=== PATIENT | male | born 1960 | race Caucasian/White ===

== ENCOUNTER 2019-02-03 01:07 | Observation (INO) ==
[2019-02-03] MEDS ORDERED: Ondansetron 4 MG/2 ML VIAL IVP ONE (01:16)
--- NOTE | 2019-02-03 01:24 | Emergency Department Note ---
Disposition Clinical Impression: Abdominal pain Qualifiers: Abdominal location: generalized Qualified Code(s): R10.84 - Generalized abdominal pain Disposition: Still a Patient Condition: Fair Forms: ED Satisfaction Letter, Work/School Release Time of Disposition: 05:59 Abdominal Pain HPI - General Chief Complaint: ED Abdominal Pain Stated Complaint: abd pain Time Seen by Provider: 02/03/19 01:12 Source: patient, EMS Mode of arrival: EMS Limitations: no limitations Nursing Notes Reviewed: Yes Vital Signs Reviewed: Yes - History of Present Illness Pt Subjective Complaint: abdominal pain Onset (ago): hour(s) Consistency: constant, other Location: diffuse Pain Severity: moderate, severe Pain Scale: 9 Quality: stabbing, sharp Radiation: none Migration to: no migration Improves with: nothing Worsens with: nothing Context: possible food poisoning, history of similar episodes (last ) Associated symptoms: Reports: nausea, vomiting, diarrhea. Denies: fever, chills, constipation, dysuria, hematemesis, hematochezia, melena, hematuria, anorexia, syncope Treatments prior to arrival: none - Related Data Home Medications Medication Instructions Recorded Confirmed Unable To Obtain [Unable to Obtain] 02/03/19 02/03/19 Allergies Allergy/AdvReac Type Severity Reaction Status Date / Time Penicillins Allergy See Verified 02/03/19 01:11 Comments All systems ED: reviewed and negative except as stated. Review of Systems: As Per HPI Constitutional: Denies: fever, chills, weakness Cardiovascular: Denies: chest pain, palpitations, dyspnea on exertion, orthopnea, edema, syncope Respiratory: Denies: cough, dyspnea, wheezes Gastrointestinal: Reports: as per HPI, abdominal pain, nausea, vomiting, diarrhea. Denies: constipation, hematemesis, melena, hematochezia Genitourinary: Denies: urgency, dysuria, frequency, hematuria Musculoskeletal: Denies: back pain, joint swelling, arthralgia Integumentary: Denies: rash Neurological: Denies: headache, weakness, numbness, paresthesias, vertigo Hematological/Lymphatic: Denies: easy bleeding, easy bruising Abdominal Pain PMH - Past Medical History Medical history: Reports: diabetes, GERD, hyperlipidemia, hypertension, pulmonary embolus, other Male Surgical History: Reports: orthopedic, other, other Psychiatric history: Reports: depression - Social History Smoking status: Current every day smoker Alcohol use: Reports: heavy, recent Drug use: Reports: none Physical Exam - General Limitations: no limitations General appearance: alert, in no apparent distress - Head Head exam: atraumatic, normocephalic, normal inspection - Eye Eye exam: Present: normal appearance, PERRL. Absent: scleral icterus, c onjunctival injection, periorbital swelling - ENT ENT exam: mucous membranes dry - Neck Neck exam: Present: normal inspection, full ROM, trachea midline. Absent: meningismus - Respiratory Respiratory exam: Present: normal lung sounds bilaterally. Absent: respiratory distress - Cardiovascular Cardiovascular exam: Present: regular rate, normal rhythm - Abdominal Exam Abdominal exam: Present: soft, tenderness. Absent: distention, guarding, rebound, rigidity, organomegaly, Gamez's sign, Rovsing's sign, tenderness at McBurney's Point, ascites, mass, pulsatile mass Abdominal tenderness: Present: diffuse - Extremities Exam Extremities exam: Present: normal inspection, full ROM, normal capillary refill - Back Exam Back exam: Present: normal inspection - Neurological Exam Neurological exam: Present: alert, oriented X3, CN II-XII intact, normal gait - Psychiatric Psychiatric exam: Present: normal affect, normal mood - Skin Skin exam: Present: warm, dry, intact, normal color Course Course Narrative: Patient presents for eval of acute onset abd pain with N/V/D. Similar illness last . Had [employer] for dinner and thinks perhaps it was "bad". No hx of abd surgery or pathology. No blood in emesis or stool. He looks misera ble but non-toxic. Meds, labs and CT ordered. Symptoms improved. Labs resulted. CT concerning for cholecystitis per Radiologist. U/S tech paged. 02:40 tutor coordinator has now made contact with sponge maker. There is another patient ahead of this one though. Pain returned. Additional meds ordered. - Consultations Consultation #1: Case discussed with Dr Louis. He recommends admission to the hospitalist and hepato-biliary scan. Time: 05:58 Vital Signs Temperature 98.2 F 02/03/19 01:12 Pulse Rate 84 02/03/19 01:12 Respiratory Rate 20 02/03/19 01:12 Blood Pressure 149/79 02/03/19 01:12 O2 Sat by Pulse Oximetry 95 02/03/19 01:12 Temperature 98.2 F 02/03/19 01:12 Pulse Rate 111 02/03/19 04:14 Respiratory Rate 24 02/03/19 04:14 Blood Pressure 162/100 02/03/19 03:50 O2 Sat by Pulse Oximetry 97 02/03/19 04:14 Oxygen Delivery Oxygen Delivery Nasal Cannula Abdominal Pain - Medical Records Medical records reviewed: Yes I reviewed the patient's medical records. - Lab Data Lab results reviewed: Yes I reviewed the patient's lab results. Lab results narrative: Laboratory Last Values WBC 13.1 K/mcL (4.3-11.1) H 02/03/19 01:27 RBC 5.13 M/mcL (4.19-5.50) 02/03/19 01:27 Hgb 16.7 g/dL (12.9-16.9) 02/03/19 01:27 Hct 47.6 % (37.5-50.1) 02/03/19 01:27 MCV 92.8 fL (83.0-100.0) 02/03/19 01:27 MCH 32.6 pg (28.0-33.3) 02/03/19 01:27 MCHC 35.1 g/dL (31.6-35.5) 02/03/19 01:27 RDW 11.9 % (11.5-14.5) 02/03/19 01:27 Plt Count 224 K/mcL (140-400) 02/03/19 01:27 MPV 10.2 fL (9.4-12.4) 02/03/19 01:27 Immature Gran % 0.5 % (0-4) 02/03/19 01:27 Seg Neutrophils % 90.4 % 02/03/19 01:27 Lymphocytes % 6.4 % 02/03/19 01:27 Monocytes % 2.5 % 02/03/19 01:27 Eosinophils % 0.0 % 02/03/19 01:27 Basophils % 0.2 % 02/03/19 01:27 Neutrophils # 11.9 K/mcL (1.6-8.9) H 02/03/19 01:27 Lymphocytes # 0.8 K/mcL (0.6-4.6) 02/03/19 01:27 Monocytes # 0.3 K/mcL (0.0-1.3) 02/03/19 01:27 Eosinophils # 0.0 K/mcL (0.0-0.6) 02/03/19 01:27 Basophils # 0.0 K/mcL (0.0-0.2) 02/03/19 01:27 Sodium 131 mEq/L (136-145) L 02/03/19 01:27 Potassium 3.8 mEq/L (3.5-5.1) 02/03/19 01:27 Chloride 90 mEq/L (98-107) L 02/03/19 01:27 Carbon Dioxide 24 mEq/L (23-29) 02/03/19 01:27 BUN 5 mg/dL (6-20) L 02/03/19 01:27 Creatinine 0.79 mg/dL (0.70-1.30) 02/03/19 01:27 Est GFR ( Amer) > 60 (> 60) 02/03/19 01:27 Est GFR (Non-Af Amer) > 60 (> 60) 02/03/19 01:27 BUN/Creatinine Ratio 6 (6-26) 02/03/19 01:27 Glucose 204 mg/dL (70-105) H 02/03/19 01:27 Calculated Osmolality 275 (280-300) L 02/03/19 01:27 Calcium 8.8 mg/dL (8.6-10.3) 02/03/19 01:27 Total Bilirubin 0.8 mg/dL (0.3-1.0) 02/03/19 01:27 Direct Bilirubin 0.3 mg/dL (0.0-0.2) H 02/03/19 01:27 Indirect Bilirubin 0.5 mg/dL (0.0-1.2) 02/03/19 01:27 AST 27 Units/L (13-39) 02/03/19 01:27 ALT 25 Units/L (7-52) 02/03/19 01:27 Alkaline Phosphatase 91 Units/L (34-104) 02/03/19 01:27 Serum Total Protein 7.2 g/dL (6.4-8.9) 02/03/19 01:27 Albumin 4.2 g/dL (3.5-5.7) 02/03/19 01:27 Globulin 3.0 g/dL (2.4-3.5) 02/03/19 01:27 Albumin/Globulin Ratio 1.4 (1.1-2.2) 02/03/19 01:27 Lipase 17 Units/L (11-82) 02/03/19 01:27 Result diagrams: 02/03/19 01:27 02/03/19 01:27 Lab Results 02/03/19 02/03/19 Range/Units 01:27 01:27 WBC 13.1 H (4.3-11.1) K/mcL RBC 5.13 (4.19-5.50) M/mcL Hgb 16.7 (12.9-16.9) g/dL Hct 47.6 (37.5-50.1) % MCV 92.8 (83.0-100.0) fL MCH 32.6 (28.0-33.3) pg MCHC 35.1 (31.6-35.5) g/dL RDW 11.9 (11.5-14.5) % Plt Count 224 (140-400) K/mcL MPV 10.2 (9.4-12.4) fL Immature Gran % 0.5 (0-4) % Seg Neutrophils % 90.4 % Lymphocytes % 6.4 % Monocytes % 2.5 % Eosinophils % 0.0 % Basophils % 0.2 % Neutrophils # 11.9 H (1.6-8.9) K/mcL Lymphocytes # 0.8 (0.6-4.6) K/mcL Monocytes # 0.3 (0.0-1.3) K/mcL Eosinophils # 0.0 (0.0-0.6) K/mcL Basophils # 0.0 (0.0-0.2) K/mcL Sodium 131 L (136-145) mEq/L Potassium 3.8 (3.5-5.1) mEq/L Chloride 90 L (98-107) mEq/L Carbon Dioxide 24 (23-29) mEq/L BUN 5 L (6-20) mg/dL Creatinine 0.79 (0.70-1.30) mg/dL Est GFR ( Amer) > 60 (> 60) Est GFR (Non-Af Amer) > 60 (> 60) BUN/Creatinine Ratio 6 (6-26) Glucose 204 H (70-105) mg/dL Calculated Osmolality 275 L (280-300) Calcium 8.8 (8.6-10.3) mg/dL Total Bilirubin 0.8 (0.3-1.0) mg/dL Direct Bilirubin 0.3 H (0.0-0.2) mg/dL Indirect Bilirubin 0.5 (0.0-1.2) mg/dL AST 27 (13-39) Units/L ALT 25 (7-52) Units/L Alkaline Phosphatase 91 (34-104) Units/L Serum Total Protein 7.2 (6.4-8.9) g/dL Albumin 4.2 (3.5-5.7) g/dL Globulin 3.0 (2.4-3.5) g/dL Albumin/Globulin Ratio 1.4 (1.1-2.2) Lipase 17 (11-82) Units/L - Radiology Data Radiology results reviewed: Yes I reviewed the patient's radiology results. Abdomen/Pelvis CT 02/03/19 01:17 IMPRESSION: 1. Cholelithiasis with findings suggesting acute cholecystitis. 2. Diverticulosis without scan evidence for diverticulitis. 3. Hiatal hernia. D/ / Sam Dewey MD / Sam Dewey MD Interpreting Provider: Sam Dewey MD S.B.A.R. - S.B.A.R. Situation: Demographics, MOA Background: Presenting Complaint, Relevant PMH, Meds, & Allergies Assessment: Vital Signs, Course and respsone to treatment, Exam Concerns, Patient/Family Expectation, Pertinant Lab Results, Outstanding Labs Recommendation: Barrier(s) to disposition, Recommendation based on pending studies, treatments, or consults S.B.A.R. Report Given to: Meliton Benitez CNP S.B.A.RDerick Repor Time: 06:02
[2019-02-03 01:43] LABS: Basophils % 0.2 %; Hematocrit 47.6 % (37.5-50.1); Hemoglobin 16.7 g/dL (12.9-16.9); Immature Granulocytes % 0.5 % (0-4); Lymphocytes # 0.8 K/mcL (0.6-4.6); Lymphocytes % 6.4 %; Mean Corpuscular HGB Conc 35.1 g/dL (31.6-35.5); Mean Corpuscular Hemoglobin 32.6 pg (28.0-33.3); Mean Corpuscular Volume 92.8 fL (83.0-100.0); Mean Platelet Volume 10.2 fL (9.4-12.4); Monocytes # 0.3 K/mcL (0.0-1.3); Monocytes % 2.5 %; Neutrophils # 11.9 K/mcL (1.6-8.9); Platelet Count 224 K/mcL (140-400); Red Blood Count 5.13 M/mcL (4.19-5.50); Red Cell Distribution Width 11.9 % (11.5-14.5); Segmented Neutrophils % 90.4 %; White Blood Count 13.1 K/mcL (4.3-11.1)
[2019-02-03 01:59] LABS: Alanine Aminotransferase 25 Units/L (7-52); Albumin 4.2 g/dL (3.5-5.7); Albumin/Globulin Ratio 1.4 (1.1-2.2); Alkaline Phosphatase 91 Units/L (34-104); Aspartate Amino Transferase 27 Units/L (13-39); BUN/Creatinine Ratio 6 (6-26); Bilirubin,Direct 0.3 mg/dL (0.0-0.2); Bilirubin,Indirect 0.5 mg/dL (0.0-1.2); Bilirubin,Total 0.8 mg/dL (0.3-1.0); Blood Urea Nitrogen 5 mg/dL (6-20); Calcium 8.8 mg/dL (8.6-10.3); Carbon Dioxide 24 mEq/L (23-29); Chloride 90 mEq/L (98-107); Glucose 204 mg/dL (70-105); Lipase 17 Units/L (11-82); Osmolality,Calculated 275 (280-300); Potassium 3.8 mEq/L (3.5-5.1); Sodium 131 mEq/L (136-145); Total Protein 7.2 g/dL (6.4-8.9); eGFR For African Americans > 60 (> 60); eGFR For Non-African Americans > 60 (> 60)
[2019-02-03] MEDS ORDERED: MetroNIDAZOLE 500 MG/100 ML 500 MG/100 ML BAG IVPB ONE (02:59)
[2019-02-03] MEDS ORDERED: Promethazine 25 MG in 0.9 % Sodium Chloride 50 ML IVPB ONE (03:00)
[2019-02-03] MEDS ORDERED: *HR* FentaNYL (PF) 100 MCG/2 ML VIAL IVP ONE ×2 (03:00→06:13)
--- NOTE | 2019-02-03 05:59 | Emergency Department Note ---
Disposition Clinical Impression: Abdominal pain Qualifiers: Abdominal location: unspecified location Qualified Code(s): R10.9 - Unspecified abdominal pain Disposition: Admitted As Inpatient Condition: Good Time of Disposition: 07:00 General Adult HPI - General Chief complaint: ED Abdominal Pain Stated complaint: abd pain Time Seen by Provider: 02/03/19 01:12 Source: patient, EMS Mode of arrival: EMS Limitations: no limitations - History of Present Illness Pain Scale: 4 - Related Data Home Medications Medication Instructions Recorded Confirmed Fluticasone Propionate Nasal 2 spr NS DAILY PRN 02/03/19 02/03/19 [Flonase] Linagliptin [Tradjenta] 5 mg PO DAILY 02/03/19 02/03/19 Lisinopril 2.5 mg PO DAILY 02/03/19 02/03/19 Loratadine [Claritin] 10 mg PO DAILY 02/03/19 02/03/19 Metformin HCl 500 mg PO BID 02/03/19 02/03/19 Omeprazole 20 mg PO DAILY 02/03/19 02/03/19 Simvastatin [Zocor] 10 mg PO HS 02/03/19 02/03/19 Allergies Allergy/AdvReac Type Severity Reaction Status Date / Time Penicillins Allergy See Verified 02/03/19 01:11 Comments Constitutional: Denies: fever, chills, weakness Cardiovascular: Denies: chest pain, palpitations, dyspnea on exertion, orthopnea, edema, syncope Respiratory: Denies: cough, dyspnea, wheezes Gastrointestinal: Reports: as per HPI, abdominal pain, nausea, vomiting, diarrhea. Denies: constipation, hematemesis, melena, hematochezia Genitourinary: Denies: urgency, dysuria, frequency, hematuria Musculoskeletal: Denies: back pain, joint swelling, arthralgia Integumentary: Denies: rash Neurological: Denies: headache, weakness, numbness, paresthesias, vertigo Hematological/Lymphatic: Denies: easy bleeding, easy bruising Past Medical History - Past Medical History Medical history: Reports: diabetes, GERD, hyperlipidemia, hypertension, pulmonary embolus, other Psychiatric history: Reports: depression - Social History Smoking Status: Current every day smoker Smokeless Tobacco Status: No Alcohol use: Reports: heavy, recent Drug use: Reports: none Physical Exam - General Limitations: no limitations General appearance: alert, in no apparent distress Course Vital Signs Temperature 98.2 F 09/09/19 01:12 Pulse Rate 84 02/03/19 01:12 Respiratory Rate 20 02/03/19 01:12 Blood Pressure 149/79 02/03/19 01:12 O2 Sat by Pulse Oximetry 95 02/03/19 01:12 Temperature 97.9 F 02/03/19 20:31 Pulse Rate 83 02/03/19 20:31 Respiratory Rate 15 02/03/19 20:31 Blood Pressure 162/97 02/03/19 20:31 O2 Sat by Pulse Oximetry 91 02/03/19 20:31 Oxygen Delivery Oxygen Delivery Room Air Medical Decision Making - Lab Data Result diagrams: 02/03/19 01:27 02/03/19 01:27 Lab Results 02/03/19 02/03/19 Range/Units 01:27 01:27 WBC 13.1 H (4.3-11.1) K/mcL RBC 5.13 (4.19-5.50) M/mcL Hgb 16.7 (12.9-16.9) g/dL Hct 47.6 (37.5-50.1) % MCV 92.8 (83.0-100.0) fL MCH 32.6 (28.0-33.3) pg MCHC 35.1 (31.6-35.5) g/dL RDW 11.9 (11.5-14.5) % Plt Count 224 (140-400) K/mcL MPV 10.2 (9.4-12.4) fL Immature Gran % 0.5 (0-4) % Seg Neutrophils % 90.4 % Lymphocytes % 6.4 % Monocytes % 2.5 % Eosinophils % 0.0 % Basophils % 0.2 % Neutrophils # 11.9 H (1.6-8.9) K/mcL Lymphocytes # 0.8 (0.6-4.6) K/mcL Monocytes # 0.3 (0.0-1.3) K/mcL Eosinophils # 0.0 (0.0-0.6) K/mcL Basophils # 0.0 (0.0-0.2) K/mcL Sodium 131 L (136-145) mEq/L Potassium 3.8 (3.5-5.1) mEq/L Chloride 90 L (98-107) mEq/L Carbon Dioxide 24 (23-29) mEq/L BUN 5 L (6-20) mg/dL Creatinine 0.79 (0.70-1.30) mg/dL Est GFR ( Amer) > 60 (> 60) Est GFR (Non-Af Amer) > 60 (> 60) BUN/Creatinine Ratio 6 (6-26) Glucose 204 H (70-105) mg/dL Calculated Osmolality 275 L (280-300) Calcium 8.8 (8.6-10.3) mg/dL Total Bilirubin 0.8 (0.3-1.0) mg/dL Direct Bilirubin 0.3 H (0.0-0.2) mg/dL Indirect Bilirubin 0.5 (0.0-1.2) mg/dL AST 27 (13-39) Units/L ALT 25 (7-52) Units/L Alkaline Phosphatase 91 (34-104) Units/L Serum Total Protein 7.2 (6.4-8.9) g/dL Albumin 4.2 (3.5-5.7) g/dL Globulin 3.0 (2.4-3.5) g/dL Albumin/Globulin Ratio 1.4 (1.1-2.2) Lipase 17 (11-82) Units/L Attestation Statement - Attestation Attestation: I have personally performed a face to face evaluation on this patient. I have reviewed and agree with the care plan. History and Exam by me shows: Patient 38-year-old gentleman who presents to emergency chart with chief complaint of abdominal pain. The patient states that it has been going on tonight and is unable to get comfortable and states it is localized to the right upper quadrant Physical exam patient is awake alert resting comfortably on the stretcher patient has tenderness to palpation in the right upper quadrant Medical decision management patient underwent helical imaging that showed possible cholecystitis ultrasound the gallbladder is currently pending the plan will be to admit the patient to the hospital
[2019-02-03] MEDS ORDERED: 0.9 % Sodium Chloride 1,000 ML IVC ONE (06:19)
--- NOTE | 2019-02-03 06:24 | Emergency Department Note ---
Disposition Clinical Impression: Abdominal pain Qualifiers: Abdominal location: generalized Qualified Code(s): R10.84 - Generalized abdominal pain Disposition: Admitted As Inpatient Condition: Good Referrals: Colby Lee MD [Primary Care Provider] - Forms: ED Satisfaction Letter, Work/School Release Time of Disposition: 06:24 General Adult HPI - General Chief complaint: ED Abdominal Pain Stated complaint: abd pain Time Seen by Provider: 02/03/19 01:12 Source: patient, EMS Mode of arrival: EMS Limitations: no limitations - History of Present Illness Pain Scale: 4 - Related Data Home Medications Medication Instructions Recorded Confirmed Unable To Obtain [Unable to Obtain] 02/03/19 02/03/19 Allergies Allergy/AdvReac Type Severity Reaction Status Date / Time Penicillins Allergy See Verified 02/03/19 01:11 Comments Constitutional: Denies: fever, chills, weakness Cardiovascular: Denies: chest pain, palpitations, dyspnea on exertion, orthopnea, edema, syncope Respiratory: Denies: cough, dyspnea, wheezes Gastrointestinal: Reports: as per HPI, abdominal pain, nausea, vomiting, diarrhea. Denies: constipation, hematemesis, melena, hematochezia Genitourinary: Denies: urgency, dysuria, frequency, hematuria Musculoskeletal: Denies: back pain, joint swelling, arthralgia Integumentary: Denies: rash Neurological: Denies: headache, weakness, numbness, paresthesias, vertigo Hematological/Lymphatic: Denies: easy bleeding, easy bruising Past Medical History - Past Medical History Medical history: Reports: diabetes, GERD, hyperlipidemia, hypertension, pu lmonary embolus, other Psychiatric history: Reports: depression - Social History Smoking Status: Current every day smoker Smokeless Tobacco Status: No Alcohol use: Reports: heavy, recent Drug use: Reports: none Physical Exam - General Limitations: no limitations General appearance: alert, in no apparent distress Course Course Narrative: 0600: I have assumed care of this patient from Liza Agosto PA-C due to mid- level shift change. Please see Liza's documentation for care performed prior to my arrival. Briefly, this is an alert and oriented nontoxic-appearing 58-year-old male who presented for an acute onset of diffuse abdominal cramping after eating a meal consisting of salivary state yesterday evening. He also endorsed some nausea and vomiting but denies any hematochezia, melena, hematemesis, fever, or chills. Workup ensued here and showed a slightly elevated white blood cell count of 13.1 as well as a mildly elevated direct bilirubin of 3.1. There are CT findings concerning for acute cholecystitis stanley wilson this was followed up with a right upper quadrant ultrasound that showed findings consistent with chronic cholecystitis. Liza Agosto discussed this case with Dr. Louis, general surgery documentation nurse. He recommends admission to the hospital service for hepatobiliary scan. 0616: I spoke with the admitting hospitalist on-call who has accepted the patient for admission to the hospitalist care. We will add a lactic acid as well as obtaining blood cultures and administer IV fluid as the patient is m ildly tachycardic in the 110s. Vital Signs Temperature 98.2 F 02/03/19 01:12 Pulse Rate 84 02/03/19 01:12 Respiratory Rate 20 02/03/19 01:12 Blood Pressure 149/79 02/03/19 01:12 O2 Sat by Pulse Oximetry 95 02/03/19 01:12 Temperature 98.2 F 02/03/19 01:12 Pulse Rate 111 02/03/19 04:14 Respiratory Rate 24 02/03/19 04:14 Blood Pressure 162/100 02/03/19 03:50 O2 Sat by Pulse Oximetry 97 02/03/19 04:14 Oxygen Delivery Oxygen Delivery Nasal Cannula Medical Decision Making - Medical Records Medical records reviewed: Yes I reviewed the patient's medical records. - Lab Data Lab results reviewed: Yes I reviewed the patient's lab results. Lab results narrative: Lab Results 02/03/19 02/03/19 Range/Units 01:27 01:27 WBC 13.1 H (4.3-11.1) K/mcL RBC 5.13 (4.19-5.50) M/mcL Hgb 16.7 (12.9-16.9) g/dL Hct 47.6 (37.5-50.1) % MCV 92.8 (83.0-100.0) fL MCH 32.6 (28.0-33.3) pg MCHC 35.1 (31.6-35.5) g/dL RDW 11.9 (11.5-14.5) % Plt Count 224 (140-400) K/mcL MPV 10.2 (9.4-12.4) fL Immature Gran % 0.5 (0-4) % Seg Neutrophils % 90.4 % Lymphocytes % 6.4 % Monocytes % 2.5 % Eosinophils % 0.0 % Basophils % 0.2 % Neutrophils # 11.9 H (1.6-8.9) K/mcL Lymphocytes # 0.8 (0.6-4.6) K/mcL Monocytes # 0.3 (0.0-1.3) K/mcL Eosinophils # 0.0 (0.0-0.6) K/mcL Basophils # 0.0 (0.0-0.2) K/mcL Sodium 131 L (136-145) mEq/L Potassium 3.8 (3.5-5.1) mEq/L Chloride 90 L (98-107) mEq/L Carbon Dioxide 24 (23-29) mEq/L BUN 5 L (6-20) mg/dL Creatinine 0.79 (0.70-1.30) mg/dL Est GFR ( Amer) > 60 (> 60) Est GFR (Non-Af Amer) > 60 (> 60) BUN/Creatinine Ratio 6 (6-26) Glucose 204 H (70-105) mg/dL Calculated Osmolality 275 L (280-300) Calcium 8.8 (8.6-10.3) mg/dL Total Bilirubin 0.8 (0.3-1.0) mg/dL Direct Bilirubin 0.3 H (0.0-0.2) mg/dL Indirect Bilirubin 0.5 (0.0-1.2) mg/dL AST 27 (13-39) Units/L ALT 25 (7-52) Units/L Alkaline Phosphatase 91 (34-104) Units/L Serum Total Protein 7.2 (6.4-8.9) g/dL Albumin 4.2 (3.5-5.7) g/dL Globulin 3.0 (2.4-3.5) g/dL Albumin/Globulin Ratio 1.4 (1.1-2.2) Lipase 17 (11-82) Units/L Result diagrams: 02/03/19 01:27 02/03/19 01:27 Lab Results 02/03/19 02/03/19 Range/Units 01:27 01:27 WBC 13.1 H (4.3-11.1) K/mcL RBC 5.13 (4.19-5.50) M/mcL Hgb 16.7 (12.9-16.9) g/dL Hct 47.6 (37.5-50.1) % MCV 92.8 (83.0-100.0) fL MCH 32.6 (28.0-33.3) pg MCHC 35.1 (31.6-35.5) g/dL RDW 11.9 (11.5-14.5) % Plt Count 224 (140-400) K/mcL MPV 10.2 (9.4-12.4) fL Immature Gran % 0.5 (0-4) % Seg Neutrophils % 90.4 % Lymphocytes % 6.4 % Monocytes % 2.5 % Eosinophils % 0.0 % Basophils % 0.2 % Neutrophils # 11.9 H (1.6-8.9) K/mcL Lymphocytes # 0.8 (0.6-4.6) K/mcL Monocytes # 0.3 (0.0-1.3) K/mcL Eosinophils # 0.0 (0.0-0.6) K/mcL Basophils # 0.0 (0.0-0.2) K/mcL Sodium 131 L (136-145) mEq/L Potassium 3.8 (3.5-5.1) mEq/L Chloride 90 L (98-107) mEq/L Carbon Dioxide 24 (23-29) mEq/L BUN 5 L (6-20) mg/dL Creatinine 0.79 (0.70-1.30) mg/dL Est GFR ( Amer) > 60 (> 60) Est GFR (Non-Af Amer) > 60 (> 60) BUN/Creatinine Ratio 6 (6-26) Glucose 204 H (70-105) mg/dL Calculated Osmolality 275 L (280-300) Calcium 8.8 (8.6-10.3) mg/dL Total Bilirubin 0.8 (0.3-1.0) mg/dL Direct Bilirubin 0.3 H (0.0-0.2) mg/dL Indirect Bilirubin 0.5 (0.0-1.2) mg/dL AST 27 (13-39) Units/L ALT 25 (7-52) Units/L Alkaline Phosphatase 91 (34-104) Units/L Serum Total Protein 7.2 (6.4-8.9) g/dL Albumin 4.2 (3.5-5.7) g/dL Globulin 3.0 (2.4-3.5) g/dL Albumin/Globulin Ratio 1.4 (1.1-2.2) Lipase 17 (11-82) Units/L - Radiology Data Radiology results reviewed: Yes I reviewed the patient's radiology results. Abdomen/Pelvis CT 02/03/19 01:17 IMPRESSION: 1. Cholelithiasis with findings suggesting acute cholecystitis. 2. Diverticulosis without scan evidence for diverticulitis. 3. Hiatal hernia. D/ / Sam Dewey MD / Sam Dewey MD Interpreting Provider: Sam Dewey MD Gallbladder Ultrasound 02/03/19 02:19 IMPRESSION: Cholelithiasis without sonographic evidence for acute cholecystitis. Wall thickening may indicate chronic cholecystitis. Fatty liver versus diffuse hepatocellular disease. D/ / Sam Dewey MD / Sam Dewey MD Interpreting Provider: Sam Dewey MD
[2019-02-03] MEDS ORDERED: Naloxone 0.4 MG/ML INJ IVP PRN ×2 (08:01→17:40)
[2019-02-03] MEDS ORDERED: Ondansetron 4 MG/2 ML VIAL IVP PRN ×2 (08:01→17:40)
[2019-02-03] MEDS ORDERED: Nitroglycerin 0.4 MG TAB.SUBL SL PRN ×2 (08:04→17:40)
[2019-02-03] MEDS ORDERED: *HR* Metoprolol 5 MG/5 ML VIAL IVP PRN ×2 (08:04→17:40)
[2019-02-03] MEDS ORDERED: *HR* FentaNYL (PF) 100 MCG/2 ML VIAL IVP PRN ×2 (08:08→17:40)
[2019-02-03] MEDS ORDERED: 0.9 % Sodium Chloride 1,000 ML IVC SCH (08:15)
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
[2019-02-03 11:02] LABS: INR 1.1; Prothrombin Time 12.5 Seconds (9.4-12.1)
[2019-02-03] MEDS ORDERED: MetroNIDAZOLE 500 MG/100 ML 500 MG/100 ML BAG IVPB SCH (12:00)
[2019-02-03] MEDS ORDERED: Insulin LISPRO 300 UNITS/3 ML VIAL SQ SCH ×3 (12:00→21:00)
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
[2019-02-03] MEDS ORDERED: *HR* Heparin 5,000 UNIT/ML VIAL SQ SCH (14:00)
[2019-02-03] MEDS ORDERED: *HR* FentaNYL (PF) 100 MCG/2 ML VIAL ONE (15:05)
[2019-02-03] MEDS ORDERED: *HR* Midazolam HCl 2 MG/2 ML VIAL ONE (15:05)
[2019-02-03] MEDS ORDERED: *HR* Propofol 200 MG/20 ML VIAL IVP ONE (15:05)
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
[2019-02-03] MEDS ORDERED: Lidocaine -MPF 2% 2 ML VIAL ONE ×2 (15:26→16:16)
[2019-02-03] MEDS ORDERED: *HR* PHENYLEPHRINE 1,000 MCG/10 ML SYRINGE IVP ONE (15:35)
[2019-02-03] MEDS ORDERED: Neostigmine Methylsulfate 3 MG/3 ML SYRINGE ONE (16:17)
[2019-02-03] MEDS ORDERED: Ondansetron 4 MG/2 ML VIAL ONE (16:25)
--- NOTE | 2019-02-03 16:51 | Operative Note ---
Date of procedure: 02/03/19 Pre-op diagnosis: Acute cholecystitis with cholelithiasis Post-op diagnosis: same Procedure: Laparoscopic cholecystectomy Complications: None Anesthesia: GETA Surgeon: Marci Sarmiento Was there an safety assistant present: No Estimated blood loss (cc): 20 Specimen: Gallbladder Condition: stable Disposition: PACU Procedure in Detail: This 58 year-old was taken to the operating room and placed in the supine position. The anterior abdominal wall is prepped and draped in the usual sterile fashion. A 1-2 cm curvilinear incision is made in the infraumbilical area and subcutaneous tissue was dissected down to anterior rectus fascia. Fascia is grasped with a Kyler clamp, stay sutures were placed in the fascia is divided. Posterior rectus fascia and peritoneum were elevated and divided in the same manner. A Komal port is inserted. Under direct visualization after the injection of 0.5% Marcaine the x3 5 mm ports are inserted in the right subcostal space under direct visualization. Exploration of the intraabdominal cavity reveals an abnormal gallbladder. The patient is placed in reverse Trendelenburg position and rotated to the left. The gallbladder is grasped and retracted in cephalad direction. It is also grasped and retracted in the lateral direction. The cystic duct was carefully identified circumferentially dissected doubly clipped and divided between clips. The cystic artery is carefully identified and circumferentially dissected and divided between clips. The gallbladder is dissected off the liver bed using electrocautery. Hemostasis was perfected using electrocautery. The gallbladder is removed from the intra-abdominal cavity using an Endo Catch bag. Copious irrigation is carried out in the intra- abdominal cavity, Villar's pouch and the gallbladder fossa. The pneumoperitoneum was allowed to escape under direct visualization. The ports were removed also under direct visualization. The fascia at the infraumbilical incision is closed using 0 Vicryl sutures. All skin incisions are closed using 4-0 Monocryl subcuticular stitches. Steri-Strips are placed. Sterile dressing is placed. Patient tolerated procedure well was taken to the PACU in good condition.
[2019-02-03] MEDS: 0.9 % Sodium Chloride 1,000 ML IVC SCH (17:45)
[2019-02-03] MEDS: Insulin LISPRO 300 UNITS/3 ML VIAL SQ SCH (18:55)
[2019-02-03] MEDS: MetroNIDAZOLE 500 MG/100 ML 500 MG/100 ML BAG IVPB SCH (22:11)
[2019-02-03] MEDS: *HR* Heparin 5,000 UNIT/ML VIAL SQ SCH (22:12)
--- NOTE | 2019-02-03 23:32 | Anesthesia Evaluation Post Op ---
Date of Encounter: 02/03/19 Time of Encounter: 17:15 - Discharge PostOp Status: Transfer Patient to floor (Patient's vital signs have been reviewed. Patient is stable postoperatively and has adequately recovered from anesthesia. Patient is determined to have stable airway patency and respiratory function including respiratory rate and oxygen saturation. Patient has a stable heart rate, blood pressure and adequate hydration. Patients mental status is acceptable. Patients temperature is appropriate. Pain and nausea are adequately controlled)
[2019-02-04] MEDS: 0.9 % Sodium Chloride 1,000 ML IVC SCH (03:58)
[2019-02-04] MEDS: MetroNIDAZOLE 500 MG/100 ML 500 MG/100 ML BAG IVPB SCH (03:59)
[2019-02-04] MEDS: *HR* Heparin 5,000 UNIT/ML VIAL SQ SCH (04:00)
[2019-02-04] MEDS: *HR* OxyCODONE/APAP 5/325 TABLET PO PRN ×2 (04:07→10:04)
[2019-02-04 04:42] LABS: Basophils % 0.2 %; Hematocrit 41.9 % (37.5-50.1); Immature Granulocytes % 0.8 % (0-4); Lymphocytes # 0.7 K/mcL (0.6-4.6); Lymphocytes % 5.6 %; Mean Corpuscular HGB Conc 35.6 g/dL (31.6-35.5); Mean Corpuscular Hemoglobin 32.3 pg (28.0-33.3); Mean Corpuscular Volume 90.9 fL (83.0-100.0); Mean Platelet Volume 10.8 fL (9.4-12.4); Monocytes # 0.6 K/mcL (0.0-1.3); Monocytes % 4.2 %; Neutrophils # 11.8 K/mcL (1.6-8.9); Platelet Count 184 K/mcL (140-400); Red Blood Count 4.61 M/mcL (4.19-5.50); Segmented Neutrophils % 89.2 %; White Blood Count 13.2 K/mcL (4.3-11.1)
[2019-02-04 04:43] LABS: Hemoglobin 14.9 g/dL (12.9-16.9)
[2019-02-04 05:02] LABS: BUN/Creatinine Ratio 11 (6-26); Blood Urea Nitrogen 10 mg/dL (6-20); Carbon Dioxide 22 mEq/L (23-29); Chloride 96 mEq/L (98-107); Glucose 178 mg/dL (70-105); Osmolality,Calculated 273 (280-300); Potassium 3.9 mEq/L (3.5-5.1); Sodium 130 mEq/L (136-145); eGFR For African Americans > 60 (> 60); eGFR For Non-African Americans > 60 (> 60)
[2019-02-04 07:22] VITALS: BP 128/73
[2019-02-04] MEDS: Insulin LISPRO 300 UNITS/3 ML VIAL SQ SCH (07:40)
--- NOTE | 2019-02-04 08:10 | AcuteCareSurgery Progress Note ---
<Miroslava Mcmanus Angie - Last Filed: 02/04/19 08:06> Date of Encounter: 02/04/19 Time of Encounter: 07:15 - Assessment and Plan (1) Acute cholecystitis due to biliary calculus Status: Acute Postoperative day one of laparoscopic cholecystectomy on by Dr. Pierce Sarmiento. He is located discharge from a surgical perspective. His surgical discharge instructions and discharge medications have been placed. Surgery will sign off at this time. Thank you for allowing us to participate in Mr. Anna's care. Please call or reconsult if any further questions or needs arise. Subjective Patient reports: no new complaints, feels better, pain is less, tolerating a regular diet, voiding w/o difficulty, flatus, no bowel movement, afebrile Objective Vital Signs - Last 8 Hours Temp Pulse Resp BP Pulse Ox 02/04/19 07:15 98.4 F 73 16 128/73 88 02/04/19 02:43 98.6 F 74 18 137/88 90 Intake and Output 02/03/19 02/04/19 02/04/19 23:59 07:59 15:59 Intake Total 980 / 2330 1340 / 1340 Output Total 770 / 970 350 / 350 Balance 210 / 1360 990 / 990 Intake: IV Fluids 300 / 1650 1100 / 1100 0.9 % Sodium Chloride 1,000 ML 1000 / 1000 @ 100 mls/hr IVC .Q10H [facility] Rx#: [id number] Cipro Premix 400 MG/200 ML 400 200 / 200 mg In 200 ml @ 200 mls/hr IVPB Q12H [facility] Rx#:[id number] Flagyl Premix 500 MG/100 ML 500 100 / 100 100 / 100 mg In 100 ml @ 100 mls/hr IVPB Q8H [facility] Rx#:[id number] Oral 680 / 680 240 / 240 Output: Urine 750 / 950 350 / 350 Estimated Blood Loss 20 / 20 Other: Weight 92.1 kg Blood Glucose* 199 197 Patient Weight 02/04/19 23:59 Weight 92.1 kg VITAL SIGNS: Reviewed. See [facility] GENERAL: In no apparent distress. HEENT: Normocephalic, atraumatic, , oropharynx is pink and moist. CHEST/RESPIRATORY: The thorax is free from signs of trauma. Lung sounds: clear to auscultation, normal respiratory effort CARDIAC: Regular rate and rhythm. VASCULAR: No Edema. 2+ peripheral pulses. ABDOMEN: soft, expected postoperative tenderness, active bowel sounds INCISION: Surgical incision is clean, dry, and intact. There are no signs of cellulitis or infection noted. MUSCULOSKELETAL: Extremities without clubbing, cyanosis or edema. NEUROLOGIC EXAM: Alert and oriented x 3. Speech normal. Follows commands. PSYCHIATRIC: Mood normal. SKIN: No rash or lesions. - Labs 02/04/19 04:16 02/04/19 04:16 Diabetes panel 02/04/19 Range/Units 04:16 Sodium 130 L (136-145) mEq/L Potassium 3.9 (3.5-5.1) mEq/L Chloride 96 L (98-107) mEq/L Carbon Dioxide 22 L (23-29) mEq/L BUN 10 (6-20) mg/dL Creatinine 0.89 (0.70-1.30) mg/dL Glucose 178 H (70-105) mg/dL Calcium 8.0 L (8.6-10.3) mg/dL Calcium panel 02/04/19 Range/Units 04:16 Calcium 8.0 L (8.6-10.3) mg/dL Pituitary panel 02/04/19 Range/Units 04:16 Sodium 130 L (136-145) mEq/L Potassium 3.9 (3.5-5.1) mEq/L Chloride 96 L (98-107) mEq/L Carbon Dioxide 22 L (23-29) mEq/L BUN 10 (6-20) mg/dL Creatinine 0.89 (0.70-1.30) mg/dL Glucose 178 H (70-105) mg/dL Calcium 8.0 L (8.6-10.3) mg/dL Adrenal panel 02/04/19 Range/Units 04:16 Sodium 130 L (136-145) mEq/L Potassium 3.9 (3.5-5.1) mEq/L Chloride 96 L (98-107) mEq/L Carbon Dioxide 22 L (23-29) mEq/L BUN 10 (6-20) mg/dL Creatinine 0.89 (0.70-1.30) mg/dL Glucose 178 H (70-105) mg/dL Calcium 8.0 L (8.6-10.3) mg/dL Consult Discharge Plan - Plan Instructions: Laparoscopic Cholecystectomy (DC) Additional Instructions: General Surgical Discharge Instructions 1. No pushing, pulling, or lifting greater than 15 lbs for 2-4 weeks (depending upon procedure). 2. You may remove your dressings and shower beginning today, but no tub baths, soaking, or swimming for 2 weeks. 3. No driving for one weeks unless otherwise specified and then you may resume driving when you are off narcotics and are safe to react in a car. 4. Apply ice to the abdomen 20 minutes every hour that your awake and Take i buprofen every 8 hours for discomfort. You can alternate ibuprofen with 1000 mg of acetaminophen so that you have medications every 4 hours if needed. If this does not relieve discomfort, you may take the as needed Oxycodone. Eat a small snack with pain medication as this will help reduce the risk of nausea. Take narcotics as directed. Do not take more narcotics then directed and do not share your narcotics with any other person. Do not drink alcohol while on narcotics. You can take the Zofran/ondansetron if needed for nausea or with a dose of narcotics to prevent nausea. 5. Take stool softeners (Colace) or a water based laxative (Miralax) while taking narcotics. You may hold for loose stools. 6. Report any fevers greater than 100.5F, increase abdominal discomfort, drainage that looks like pus, increased redness or pain at the surgical site, or any vomiting. 7. Report any pain in the calves, shortness of breath, or rapid heartbeat. 8. Follow-up in the office as directed. 9. If you were prescribed antibiotics, do not stop them without talking to your provider. Referrals: Colby Lee MD [Primary Care Provider] - Marci May [Partnered Physician] - 02/18/19 8:30 am Prescriptions: Ciprofloxacin [Cipro] 500 mg PO BID 5 Days #10 tablet Docusate Sodium [Colace] 100 mg PO BID PRN #30 capsule PRN Reason: Contstipation Ibuprofen 800 mg PO Q8H PRN #30 tablet PRN Reason: Postsurgical pain OxyCODONE Immed Rel [Roxicodone 5 MG] 5 mg PO Q6HR PRN 4 Days #15 tablet PRN Reason: Severe Pain <Heriberto,Alvino T - Last Filed: 02/04/19 15:25> Date of Encounter: 02/04/19 Objective Intake and Output 02/03/19 02/04/19 02/04/19 23:59 07:59 15:59 Intake Total 980 / 2330 1340 / 1580 240 / 1580 Output Total 770 / 970 350 / 350 Balance 210 / 1360 990 / 1230 240 / 1230 Intake: IV Fluids 300 / 1650 1100 / 1100 0.9 % Sodium Chloride 1,000 ML 1000 / 1000 @ 100 mls/hr IVC .Q10H OWEN Rx#: [id number] Cipro Premix 400 MG/200 ML 400 200 / 200 mg In 200 ml @ 200 mls/hr IVPB Q12H OWEN Rx#:[id number] Flagyl Premix 500 MG/100 ML 500 100 / 100 100 / 100 mg In 100 ml @ 100 mls/hr IVPB Q8H OWEN Rx#:[id number] Oral 680 / 680 240 / 480 240 / 480 Output: Urine 750 / 950 350 / 350 Estimated Blood Loss Other: Meal Breakfast Percent of Meal Consumed 100% Weight 92.1 kg Blood Glucose* 199 197 184 Patient Weight 02/04/19 23:59 Weight 92.1 kg - Labs 02/04/19 04:16 02/04/19 04:16 Diabetes panel 02/04/19 Range/Units 04:16 Sodium 130 L (136-145) mEq/L Potassium 3.9 (3.5-5.1) mEq/L Chloride 96 L (98-107) mEq/L Carbon Dioxide 22 L (23-29) mEq/L BUN 10 (6-20) mg/dL Creatinine 0.89 (0.70-1.30) mg/dL Glucose 178 H (70-105) mg/dL Calcium 8.0 L (8.6-10.3) mg/dL Calcium panel 02/04/19 Range/Units 04:16 Calcium 8.0 L (8.6-10.3) mg/dL Pituitary panel 02/04/19 Range/Units 04:16 Sodium 130 L (136-145) mEq/L Potassium 3.9 (3.5-5.1) mEq/L Chloride 96 L (98-107) mEq/L Carbon Dioxide 22 L (23-29) mEq/L BUN 10 (6-20) mg/dL Creatinine 0.89 (0.70-1.30) mg/dL Glucose 178 H (70-105) mg/dL Calcium 8.0 L (8.6-10.3) mg/dL Adrenal panel 02/04/19 Range/Units 04:16 Sodium 130 L (136-145) mEq/L Potassium 3.9 (3.5-5.1) mEq/L Chloride 96 L (98-107) mEq/L Carbon Dioxide 22 L (23-29) mEq/L BUN 10 (6-20) mg/dL Creatinine 0.89 (0.70-1.30) mg/dL Glucose 178 H (70-105) mg/dL Calcium 8.0 L (8.6-10.3) mg/dL - Attending Attestation I have personally performed a face to face evaluation on this patient. I have reviewed and agree with the care plan. History and Exam by me shows: The patient is seen and evaluated on morning rounds with the acute care surgery team. He has done quite well after laparoscopic cholecystectomy by Dr. Joesph Sarmiento. Incisions are clean and dry. From a surgical standpoint, he is ready for discharge. Follow-up acute care surgery clinic 1-2 weeks Alvino Louis MD FACS
[2019-02-04] MEDS ORDERED: Ibuprofen 800 MG TABLET PO ONE (08:17)
[2019-02-04] MEDS ORDERED: Dextrose Gel 15 GM/37.5 ML TUBE PO PRN ×2 (09:32)
[2019-02-04] MEDS ORDERED: D5% in Water 1,000 ML IVC PRN (09:32)
[2019-02-04] MEDS ORDERED: *HR* Dextrose 50 % in Water (Syg) 50 ML SYRINGE IVP PRN (09:32)
--- NOTE | 2019-02-04 10:22 | Discharge Summary ---
Orders not resulted at time of discharge: Pending orders 02/03/19 06:21 Urinalysis Reflex Cult & Micro [URIN] Stat 02/03/19 06:42 Culture,Blood [BC] Stat 02/03/19 16:11 Surgical Pathology [PTH] Routine Date of Encounter: 02/04/19 Time of Encounter: 10:18 - Discharge Diagnosis (1) Sepsis Priority: Primary Status: Acute Qualifiers: Sepsis type: sepsis due to unspecified organism Sepsis acute organ dysfunction status: without acute organ dysfunction Qualified Code(s): A41.9 - Sepsis, unspecified organism (2) Cholecystitis Priority: Secondary Status: Acute (3) Abdominal pain Priority: Secondary Status: Acute Qualifiers: Abdominal location: unspecified location Qualified Code(s): R10.9 - Unspecified abdominal pain (4) History of pulmonary embolism Priority: Secondary Status: Acute (5) Diabetes Priority: Secondary Status: Acute Qualifiers: Diabetes mellitus type: type 2 Diabetes mellitus adjunct faculty for medical terminology insulin use: unspecified custodial insulin use status Diabetes mellitus complication status: without complication Qualified Code(s): E11.9 - Type 2 diabetes mellitus without complications (6) Alcohol abuse Priority: Secondary Status: Acute (7) Hypertension Priority: Secondary Status: Acute Qualifiers: Hypertension type: essential hypertension Qualified Code(s): I10 - Essential (primary) hypertension Hospital course: Mr. Anna is a 58 year old male with hx of HTN, NIDDM Type II, and alcohol abuse who presented with acute abdominal pain and found to have cholecystitis s/p lap marco with resolution of symptoms. Patient was sent home with general surgery and PCP follow-up. Counseled on cutting back on alcohol use/abuse. - Time Spent with Patient Total time spent providing and/or coordinating discharge services: - Discharge Medications Prescriptions: New Ciprofloxacin [Cipro] 500 mg PO BID 5 Days #10 tablet Docusate Sodium [Colace] 100 mg PO BID PRN #30 capsule PRN Reason: Contstipation Ibuprofen 800 mg PO Q8H PRN #30 tablet PRN Reason: Postsurgical pain OxyCODONE Immed Rel [Roxicodone 5 MG] 5 mg PO Q6HR PRN 4 Days #15 tablet PRN Reason: Severe Pain Continued Metformin HCl 500 mg PO BID Loratadine [Claritin] 10 mg PO DAILY Lisinopril 2.5 mg PO DAILY Linagliptin [Tradjenta] 5 mg PO DAILY Simvastatin [Zocor] 10 mg PO HS Omeprazole 20 mg PO DAILY Fluticasone Propionate Nasal [Flonase] 2 spr NS DAILY PRN PRN Reason: Allergy Symptoms Home Medications: Fluticasone Propionate Nasal [Flonase] 2 spr NS DAILY PRN 02/03/19 [History] Linagliptin [Tradjenta] 5 mg PO DAILY 02/03/19 [History] Lisinopril 2.5 mg PO DAILY 02/03/19 [History] Loratadine [Claritin] 10 mg PO DAILY 02/03/19 [History] Metformin HCl 500 mg PO BID 02/03/19 [History] Omeprazole 20 mg PO DAILY 02/03/19 [History] Simvastatin [Zocor] 10 mg PO HS 02/03/19 [History] Ciprofloxacin [Cipro] 500 mg PO BID 5 Days #10 tablet 02/04/19 [Rx] Docusate Sodium [Colace] 100 mg PO BID PRN #30 capsule 02/04/19 [Rx] Ibuprofen 800 mg PO Q8H PRN #30 tablet 02/04/19 [Rx] OxyCODONE Immed Rel [Roxicodone 5 MG] 5 mg PO Q6HR PRN 4 Days #15 tablet 02/04/19 [Rx] Allergies/Adverse Reactions: Allergy/AdvReac Type Severity Reaction Status Date / Time Penicillins Allergy See Verified 02/03/19 01:11 Comments Date of admission: 02/03/19 06:26 Primary care physician: Colby Lee Consults: 02/03/19 08:09 Consult to Surgery [CONS] Routine Consulting Provider: Acute Care Surgery Reason for Consult: cholecystitis Call Completed: Yes - Constitutional Vitals: Temp Pulse Resp BP Pulse Ox 98.4 F 73 16 128/73 88 02/04/19 07:15 02/04/19 07:15 02/04/19 07:15 02/04/19 07:15 02/04/19 07:15 General appearance: Present: cooperative, mild distress, A&O X 3, answers questions appropriately Exam: General: Ill-appearing and in no acute distress HEENT: No erythema of posterior pharynx. No exudates. Lymphatics: No mandibular or cervical lymphadenopathy Cardiovascular: RRR. No murmurs. No chest wall tenderness. Lungs: Clear to auscelltation bilaterally. Regular chest rise. Abdomen: Mild tenderness at incision sites. No rebound or gaurding. Nl bowel sounds. Extremities: No edema. 2+ pulses radial and pedal pulses Skin: No rahses, abrasions, or contusions. Nl cap refill. Psych: Nl attention. A&Ox3 Neuro: unit coordinator II-XII intact. 5/5 strength. Sensation to light touch and pinprick intact. - Patient Status Disposition: Home, Self-Care Functional capacity at discharge: independent ambulation Overall status at discharge: patient is progressing back to baseline - Discharge Instructions Instructions: Laparoscopic Cholecystectomy (DC) Follow Up With: Colby Lee MD [Primary Care Provider] - Marci May [Partnered Physician] - 02/18/19 8:30 am Additional Instructions: General Surgical Discharge Instructions 1. No pushing, pulling, or lifting greater than 15 lbs for 2-4 weeks (depending upon procedure). 2. You may remove your dressings and shower beginning today, but no tub baths, soaking, or swimming for 2 weeks. 3. No driving for one weeks unless otherwise specified and then you may resume driving when you are off narcotics and are safe to react in a car. 4. Apply ice to the abdomen 20 minutes every hour that your awake and Take ibuprofen every 8 hours for discomfort. You can alternate ibuprofen with 1000 mg of acetaminophen so that you have medications every 4 hours if needed. If this does not relieve discomfort, you may take the as needed Oxycodone. Eat a small snack with pain medication as this will help reduce the risk of nausea. Take narcotics as directed. Do not take more narcotics then directed and do not share your narcotics with any other person. Do not drink alcohol while on narcotics. You can take the Zofran/ondansetron if needed for nausea or with a dose of narcotics to prevent nausea. 5. Take stool softeners (Colace) or a water based laxative (Miralax) while taking narcotics. You may hold for loose stools. 6. Report any fevers greater than 100.5F, increase abdominal discomfort, drainage that looks like pus, increased redness or pain at the surgical site, or any vomiting. 7. Report any pain in the calves, shortness of breath, or rapid heartbeat. 8. Follow-up in the office as directed. 9. If you were prescribed antibiotics, do not stop them without talking to your provider. - Diet and Activity Activity: increase activity as tolerated Diet: advance to your usual diet, diabetic diet
[2019-02-04] MEDS ORDERED: FLU Vac QV 19-20 (18YR+)/PF 0.5 ML SYRINGE IM ONE (11:38)
== END 2019-02-04 12:57 | disposition home or self-care (01) ==
LOC: EMEROOARM 01:07 → 2ANU 01:07 → SUATTDRO 06:26 → 3ANU 06:56
PROVIDERS: ADMIT Internal Medicine; ATTEND Internal Medicine

== ENCOUNTER 2021-07-01 22:19 | Observation (INO) ==
[2021-07-02 00:08] LABS: Alanine Aminotransferase 26 Units/L (7-52); Albumin 4.1 g/dL (3.5-5.7); Albumin/Globulin Ratio 1.5 (1.1-2.2); Alkaline Phosphatase 73 Units/L (34-104); Aspartate Amino Transferase 24 Units/L (13-39); BUN/Creatinine Ratio 11 (6-26); Basophils % 0.4 %; Bilirubin,Total 0.6 mg/dL (0.3-1.0); Blood Urea Nitrogen 8 mg/dL (8-23); Calcium 8.5 mg/dL (8.6-10.3); Carbon Dioxide 24 mEq/L (23-29); Chloride 89 mEq/L (98-107); Eosinophils # 0.1 K/mcL (0.0-0.6); Eosinophils % 1.7 %; Globulin 2.7 g/dL (2.4-3.5); Glucose 168 mg/dL (70-105); Hematocrit 40.2 % (37.5-50.1); Immature Granulocytes % 0.4 % (0-4); Lymphocytes # 1.3 K/mcL (0.6-4.6); Lymphocytes % 24.2 %; Mean Corpuscular HGB Conc 34.8 g/dL (31.6-35.5); Mean Corpuscular Hemoglobin 31.4 pg (28.0-33.3); Mean Corpuscular Volume 90.1 fL (83.0-100.0); Mean Platelet Volume 10.8 fL (9.4-12.4); Monocytes # 0.5 K/mcL (0.0-1.3); Monocytes % 9.8 %; Neutrophils # 3.4 K/mcL (1.6-8.9); Osmolality,Calculated 258 (280-300); Platelet Count 186 K/mcL (140-400); Potassium 3.6 mEq/L (3.5-5.1); Red Blood Count 4.46 M/mcL (4.19-5.50); Red Cell Distribution Width 11.3 % (11.5-14.5); Segmented Neutrophils % 63.5 %; Sodium 123 mEq/L (136-145); Total Protein 6.8 g/dL (6.4-8.9); Troponin I < 0.03 ng/mL (< 0.04); White Blood Count 5.3 K/mcL (4.3-11.1); eGFR For African Americans > 60 (> 60); eGFR For Non-African Americans > 60 (> 60)
[2021-07-02 02:15] LABS: Influenza A PCR Negative (Negative); Influenza B PCR Negative (Negative); Resp. Syncytial Virus PCR Negative (Negative); SARS-CoV-2 by PCR (In House) Negative (Negative)
[2021-07-02] MEDS ORDERED: Acetaminophen 325 MG TABLET PO PRN (03:57)
[2021-07-02] MEDS ORDERED: Naloxone 0.4 MG/ML INJ IVP PRN (03:57)
[2021-07-02] MEDS ORDERED: Ondansetron ODT 4 MG TAB.RAPDIS SL PRN (03:57)
[2021-07-02] MEDS ORDERED: *HR* OxyCODONE Immed Rel 5 MG TABLET PO PRN (03:57)
[2021-07-02] MEDS ORDERED: Melatonin 3 MG TABLET PO PRN (03:57)
[2021-07-02] MEDS ORDERED: 0.9 % Sodium Chloride 1,000 ML IVC SCH ×2 (04:00→06:58)
[2021-07-02] MEDS ORDERED: *HR* LORazepam 2 MG/ML VIAL IVP PRN (04:05)
[2021-07-02 04:16] LABS: Sodium, Urine 29.3 mEq/L
[2021-07-02] MEDS ORDERED: D5% in Water 1,000 ML IVC PRN (04:41)
[2021-07-02] MEDS ORDERED: *HR* Dextrose 50 % in Water (Syg) 50 ML SYRINGE IVP PRN (04:41)
[2021-07-02] MEDS ORDERED: Dextrose Gel 15 GM/37.5 ML TUBE PO PRN ×2 (04:41)
[2021-07-02 06:29] LABS: Estimated Average Glucose 143 mg/dl; Hemoglobin A1C 6.6 %
[2021-07-02 06:42] LABS: Alanine Aminotransferase 26 Units/L (7-52); Albumin 4.3 g/dL (3.5-5.7); Albumin/Globulin Ratio 1.5 (1.1-2.2); Alkaline Phosphatase 89 Units/L (34-104); Aspartate Amino Transferase 23 Units/L (13-39); BUN/Creatinine Ratio 9 (6-26); Bilirubin,Total 0.9 mg/dL (0.3-1.0); Blood Urea Nitrogen 7 mg/dL (8-23); Calcium 9.2 mg/dL (8.6-10.3); Carbon Dioxide 24 mEq/L (23-29); Chloride 94 mEq/L (98-107); Globulin 2.8 g/dL (2.4-3.5); Glucose 142 mg/dL (70-105); Osmolality,Calculated 264 (280-300); Sodium 127 mEq/L (136-145); Total Protein 7.1 g/dL (6.4-8.9); eGFR For African Americans > 60 (> 60); eGFR For Non-African Americans > 60 (> 60)
[2021-07-02 06:49] LABS: Amylase 34 Units/L (29-103); Lipase 32 Units/L (11-82)
[2021-07-02] MEDS: Thiamine (B-1) 100 MG TABLET PO SCH (09:16)
[2021-07-02] MEDS: Folic Acid 1 MG TABLET PO SCH (09:16)
[2021-07-02] MEDS: Vitamin B Complex/Vit C/Vit E 1 EACH TABLET PO SCH (09:16)
[2021-07-02] MEDS: Insulin LISPRO 300 UNITS/3 ML VIAL SUBQ SCH ×3 (09:17→17:37)
[2021-07-02] MEDS ORDERED: Perflutren Lipid Microsphere 1.3 ML in 0.9 % Sodium Chloride 8.7 ML IVP PRN (09:59)
[2021-07-02 14:39] LABS: BUN/Creatinine Ratio 8 (6-26); Blood Urea Nitrogen 7 mg/dL (8-23); Calcium 8.7 mg/dL (8.6-10.3); Carbon Dioxide 27 mEq/L (23-29); Chloride 93 mEq/L (98-107); Glucose 220 mg/dL (70-105); Osmolality,Calculated 271 (280-300); Potassium 3.8 mEq/L (3.5-5.1); Sodium 128 mEq/L (136-145); eGFR For African Americans > 60 (> 60); eGFR For Non-African Americans > 60 (> 60)
[2021-07-03] MEDS: Insulin LISPRO 300 UNITS/3 ML VIAL SUBQ SCH ×4 (01:00→18:35)
[2021-07-03 06:05] LABS: Basophils % 0.4 %; Eosinophils # 0.1 K/mcL (0.0-0.6); Eosinophils % 0.9 %; Hematocrit 44.9 % (37.5-50.1); Hemoglobin 15.6 g/dL (12.9-16.9); Immature Granulocytes % 0.3 % (0-4); Lymphocytes # 1.7 K/mcL (0.6-4.6); Lymphocytes % 24.1 %; Mean Corpuscular HGB Conc 34.7 g/dL (31.6-35.5); Mean Corpuscular Hemoglobin 32.2 pg (28.0-33.3); Mean Corpuscular Volume 92.8 fL (83.0-100.0); Mean Platelet Volume 10.6 fL (9.4-12.4); Monocytes # 0.5 K/mcL (0.0-1.3); Monocytes % 7.3 %; Neutrophils # 4.7 K/mcL (1.6-8.9); Platelet Count 185 K/mcL (140-400); Red Blood Count 4.84 M/mcL (4.19-5.50); Red Cell Distribution Width 11.6 % (11.5-14.5)
[2021-07-03 06:24] LABS: BUN/Creatinine Ratio 9 (6-26); Blood Urea Nitrogen 8 mg/dL (8-23); Calcium 9.3 mg/dL (8.6-10.3); Carbon Dioxide 26 mEq/L (23-29); Chloride 96 mEq/L (98-107); Glucose 165 mg/dL (70-105); Magnesium 1.8 mg/dL (1.6-2.6); Osmolality,Calculated 274 (280-300); Phosphorous 3.3 mg/dL (2.7-4.5); Potassium 3.7 mEq/L (3.5-5.1); Sodium 131 mEq/L (136-145); eGFR For African Americans > 60 (> 60); eGFR For Non-African Americans > 60 (> 60)
[2021-07-03 06:50] LABS: Folate > 22.3 ng/mL (3.0-16.0); Vitamin B12 220 pg/mL (250-1100)
[2021-07-03] MEDS: Thiamine (B-1) 100 MG TABLET PO SCH (10:25)
[2021-07-03] MEDS: Cyanocobalamin (B-12) 1,000 MCG/ML VIAL SQ SCH (10:25)
[2021-07-03] MEDS: Metoprolol XL (24 HR) Succ 25 MG TAB.ER.24H PO SCH (10:25)
[2021-07-03] MEDS: Vitamin B Complex/Vit C/Vit E 1 EACH TABLET PO SCH (10:25)
[2021-07-03] MEDS: Folic Acid 1 MG TABLET PO SCH (10:25)
[2021-07-03] MEDS: lisinopriL 10 MG TABLET PO SCH (10:25)
[2021-07-03] MEDS: *HR* HYDROcodone/Acet 5/325 mg TABLET PO PRN (15:07)
[2021-07-03] MEDS: *HR* Heparin 5,000 UNIT/ML VIAL SQ SCH (18:35)
[2021-07-04] MEDS: Insulin LISPRO 300 UNITS/3 ML VIAL SUBQ SCH ×4 (00:27→11:40)
[2021-07-04 02:56] LABS: Basophils % 0.5 %; Eosinophils # 0.1 K/mcL (0.0-0.6); Eosinophils % 2.2 %; Hematocrit 45.6 % (37.5-50.1); Hemoglobin 15.5 g/dL (12.9-16.9); Immature Granulocytes % 0.3 % (0-4); Lymphocytes # 2.7 K/mcL (0.6-4.6); Lymphocytes % 43.2 %; Mean Corpuscular Hemoglobin 31.4 pg (28.0-33.3); Mean Corpuscular Volume 92.5 fL (83.0-100.0); Mean Platelet Volume 10.4 fL (9.4-12.4); Monocytes # 0.7 K/mcL (0.0-1.3); Monocytes % 10.7 %; Neutrophils # 2.7 K/mcL (1.6-8.9); Platelet Count 193 K/mcL (140-400); Red Blood Count 4.93 M/mcL (4.19-5.50); Red Cell Distribution Width 11.6 % (11.5-14.5); Segmented Neutrophils % 43.1 %; White Blood Count 6.3 K/mcL (4.3-11.1)
[2021-07-04 03:44] LABS: BUN/Creatinine Ratio 13 (6-26); Blood Urea Nitrogen 12 mg/dL (8-23); Calcium 9.6 mg/dL (8.6-10.3); Carbon Dioxide 28 mEq/L (23-29); Chloride 96 mEq/L (98-107); Glucose 131 mg/dL (70-105); Osmolality,Calculated 278 (280-300); Potassium 4.2 mEq/L (3.5-5.1); Sodium 133 mEq/L (136-145); eGFR For African Americans > 60 (> 60); eGFR For Non-African Americans > 60 (> 60)
[2021-07-04] MEDS: *HR* Heparin 5,000 UNIT/ML VIAL SQ SCH (05:14)
[2021-07-04 07:58] VITALS: BP 137/82; PULSE 84; TEMP 98.1; O2SAT 93
[2021-07-04] MEDS: Metoprolol XL (24 HR) Succ 25 MG TAB.ER.24H PO SCH (09:07)
[2021-07-04] MEDS: Vitamin B Complex/Vit C/Vit E 1 EACH TABLET PO SCH (09:07)
[2021-07-04] MEDS: *HR* HYDROcodone/Acet 5/325 mg TABLET PO PRN (09:07)
[2021-07-04] MEDS: lisinopriL 10 MG TABLET PO SCH (09:08)
[2021-07-04] MEDS: Cyanocobalamin (B-12) 1,000 MCG/ML VIAL SQ SCH (09:08)
[2021-07-04] MEDS: Folic Acid 1 MG TABLET PO SCH (09:08)
[2021-07-04] MEDS: Thiamine (B-1) 100 MG TABLET PO SCH (09:08)
[2021-07-04] MEDS ORDERED: *HR* LORazepam 2 MG/ML VIAL IVP PRN ×2 (12:08)
[2021-07-04] MEDS ORDERED: Isovue-370 500 ML BOTTLE IVP ONE (13:54)
[2021-07-04] MEDS ORDERED: Perflutren Lipid Microsphere 1.3 ML in 0.9 % Sodium Chloride 8.7 ML IVP PRN (14:35)
[2021-07-04] MEDS ORDERED: Aspirin 81 MG TAB.CHEW PO SCH (14:45)
[2021-07-04] MEDS ORDERED: Insulin LISPRO 300 UNITS/3 ML VIAL SUBQ SCH (21:00)
== END 2021-07-04 15:39 | disposition home or self-care (01) ==
LOC: EMEROOARM 22:19 → 2ANU 22:19 → SUATTDRO 07-02 03:53 → 2ANU 07-02 05:05
PROVIDERS: ADMIT Internal Medicine; ATTEND Internal Medicine